=== PATIENT | male | born 1950 | race Two or more races ===

== ENCOUNTER 2020-11-19 10:55 | Outpatient (CLI) | payer OTHER | END 2020-11-19 11:55 | disposition home or self-care (01) | LOC: PPH VACUNA 10:55 | PROVIDERS: ATTEND Emergency Medicine Pediatric Emergency Medicine | DX: Z23 Encounter for immunization (principal) | CPT/HCPCS: 90686; G0008 ==

== ENCOUNTER 2021-02-11 10:07 | Outpatient (CLI) | payer OTHER | END 2021-02-11 15:00 | disposition home or self-care (01) | LOC: LAB 10:07 | PROVIDERS: ATTEND Emergency Medicine Pediatric Emergency Medicine | DX: Z20.818 Contact with and (suspected) exposure to other bacterial communicable diseases (principal); Z20.828 Contact with and (suspected) exposure to other viral communicable diseases ==

== ENCOUNTER 2021-06-03 11:15 | Outpatient (CLI) | payer OTHER | END 2021-06-03 11:30 | disposition home or self-care (01) | LOC: PPH VACUNA 11:15 | PROVIDERS: ATTEND Emergency Medicine Pediatric Emergency Medicine | DX: Z23 Encounter for immunization (principal) ==

== ENCOUNTER 2021-10-14 10:32 | Outpatient (CLI) | payer OTHER | END 2021-10-14 10:34 | disposition home or self-care (01) | LOC: NUCLEAR 10:32 | PROVIDERS: ATTEND Internal Medicine Cardiovascular Disease | DX: I82.441 Acute embolism and thrombosis of right tibial vein (principal); I26.99 Other pulmonary embolism without acute cor pulmonale | CPT/HCPCS: 78580; 93970; A9540 ==